=== PATIENT | female | born 1975 | race Caucasian/White ===

== ENCOUNTER 2017-08-26 20:59 | Emergency (ER) | payer MEDICAID, OTHER ==
[~2017-08-26] VITALS: Ht 162.6 cm; Wt 128.8 kg
[~2017-08-26 20:59] MED LIST: CYCL-1 PO
[2017-08-26 21:31] VITALS: BP 154/65
== END 2017-08-26 21:33 | disposition home or self-care (01) ==
LOC: ER 21:00
DX: R06.00 Dyspnea, unspecified (principal); F41.9 Anxiety disorder, unspecified; G89.29 Other chronic pain; F17.200 Nicotine dependence, unspecified, uncomplicated; Z88.8 Allergy status to other drugs, medicaments and biological substances
CPT/HCPCS: 93005; 99283

== ENCOUNTER 2019-03-20 11:53 | Emergency (ER) | payer MEDICAID ==
[~2019-03-20] VITALS: Ht 162.6 cm; Wt 150.0 kg
[~2019-03-20 11:53] MED LIST changes: +GUAI120015 PO; +PSEU-259 PO
[2019-03-20 12:01] VITALS: BP 152/92
[2019-03-20] MEDS ORDERED: ketorolac trometh inj. 60 MG/2 ML VIAL IM ONE (13:00)
[2019-03-20] MEDS ORDERED: IBUP-1984 PO (13:20)
== END 2019-03-20 13:50 | disposition home or self-care (01) ==
LOC: ER 11:53
DX: R07.81 Pleurodynia (principal); M19.90 Unspecified osteoarthritis, unspecified site; G89.29 Other chronic pain; F41.9 Anxiety disorder, unspecified; F32.9 Major depressive disorder, single episode, unspecified; E66.01 Morbid (severe) obesity due to excess calories; Z88.1 Allergy status to other antibiotic agents; Z79.899 Other long term (current) drug therapy; Z68.43 Body mass index [BMI] 50.0-59.9, adult
CPT/HCPCS: 71101; 96372; 99283; J1885

== ENCOUNTER 2019-10-11 14:01 | Emergency (ER) | payer MEDICAID ==
[~2019-10-11] VITALS: Ht 162.6 cm; Wt 151.7 kg
[2019-10-11 15:18] LABS: BASOPHILS # (AUTO) 0.1 X10'3 (0-0.2); BASOPHILS % (AUTO) 1.3 % (0-1); EOSINOPHILS # (AUTO) 0.1 X10'3 (0-0.9); EOSINOPHILS % (AUTO) 0.8 % (0-6); HEMATOCRIT 38.5 % (35.0-45.0); HEMOGLOBIN 12.5 g/dl (12.0-16.0); LYMPHOCYTES # (AUTO) 2.6 X10'3 (1.1-4.8); LYMPHOCYTES % (AUTO) 24.1 % (21-51); MEAN CORPUSCULAR HEMOGLOBIN 26.5 PG (27.0-31.0); MEAN CORPUSCULAR HGB CONC 32.5 g/dL (33.0-36.5); MEAN CORPUSCULAR VOLUME 81.8 FL (78-98); MEAN PLATELET VOLUME 7.4 FL (7.4-10.4); MONOCYTES # (AUTO) 0.5 X10'3 (0-0.9); MONOCYTES % (AUTO) 4.7 % (2-12); NEUTROPHILS # (AUTO) 7.5 X10'3 (1.8-7.7); NEUTROPHILS % (AUTO) 69.1 % (42-75); PLATELET COUNT 450 X10'3 (140-440); RED BLOOD COUNT 4.71 X10'6 (4.20-5.60); RED CELL DISTRIBUTION WIDTH 17.5 % (11.5-14.5); WHITE BLOOD COUNT 10.9 X10'3 (4.5-11.0)
[2019-10-11 15:34] LABS: ALANINE AMINOTRANSFERASE 29 U/L (12-78); ALBUMIN 3.8 G/DL (3.4-5.0); ALBUMIN/GLOBULIN RATIO 0.8 (1.1-1.5); ALKALINE PHOSPHATASE 73 IU/L (46-116); ANION GAP 9 (8-16); ASPARTATE AMINO TRANSFERASE 13 U/L (10-37); BILIRUBIN,TOTAL 0.4 MG/DL (0.1-1.0); BLOOD UREA NITROGEN 14 MG/DL (7-18); BUN/CREATININE RATIO 15.1 (6.6-38.0); CALCIUM 9.5 MG/DL (8.5-10.1); CHLORIDE 103 MMOL/L (99-107); CREATININE 0.93 MG/DL (0.40-0.90); GLUCOSE 111 MG/DL (70-104); POTASSIUM 4.1 MMOL/L (3.5-5.1); SODIUM 139 MMOL/L (135-145); TOTAL CARBON DIOXIDE 27.5 MMOL/L (24-32); TOTAL PROTEIN 8.4 G/DL (6.4-8.2); eGFR 66 ML/MIN
[2019-10-11 15:41] LABS: MAGNESIUM 1.9 MG/DL (1.5-2.4)
[2019-10-11 16:03] VITALS: BP 154/84
== END 2019-10-11 16:05 | disposition home or self-care (01) ==
LOC: ER 14:02
DX: R03.0 Elevated blood-pressure reading, without diagnosis of hypertension (principal); M54.5 Low back pain; M25.552 Pain in left hip; R20.0 Anesthesia of skin; M19.90 Unspecified osteoarthritis, unspecified site; G89.29 Other chronic pain; F41.9 Anxiety disorder, unspecified; F32.9 Major depressive disorder, single episode, unspecified; Z88.1 Allergy status to other antibiotic agents; Z79.899 Other long term (current) drug therapy
CPT/HCPCS: 36415; 71045; 80053; 83735; 83880; 84484; 85025; 93005; 99285

== ENCOUNTER 2021-09-06 23:56 | Emergency (ER) | payer MEDICAID ==
[~2021-09-06] VITALS: Ht 162.6 cm; Wt 154.6 kg
[2021-09-07 00:11] VITALS: BP 183/99
== END 2021-09-07 02:51 | disposition left against medical advice (07) ==
LOC: ER 23:57
DX: J00 Acute nasopharyngitis [common cold] (principal); R05.9 Cough, unspecified; R09.89 Other specified symptoms and signs involving the circulatory and respiratory systems; Z53.21 Procedure and treatment not carried out due to patient leaving prior to being seen by health care provider